=== PATIENT | male | born 1995 ===

== ENCOUNTER 2021-01-28 12:53 | Emergency (ER) | payer SELFPAY ==
[~2021-01-28] VITALS: Ht 177.8 cm; Wt 65.9 kg
[2021-01-28] MEDS ORDERED: NALOXONE 0.4 MG/ML, 1ML IVPush PRN (13:00)
[2021-01-28] MEDS ORDERED: PLEASE ENTER HEIGHT AND WEIGHT MC SCH (13:00)
[2021-01-28] MEDS ORDERED: PLEASE ENTER ALLERGIES MC SCH (13:00)
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
[2021-01-28] MEDS ORDERED: SUBOXONE (13:07)
[2021-01-28] MEDS ORDERED: ZIPRASIDONE 20 MG INJ IM ONE ×3 (13:08→14:00)
[2021-01-28] MEDS ORDERED: LORazepam 2 MG/ML, 1ML ONE (13:08)
--- NOTE | 2021-01-28 13:22 | NUR ---
PT DC'D OWN IV. BLEEDING CONTROLED. PT MEDICATED PER EMAR. TECH AT BEDSIDE SITTER. BP/SPO2/ECG MONITORING IN PLACE. TECH MADE AWARE POTENTIAL NEED FOR NARCAN AND HAS BEEN EDUCATED TO MONITOR RESPIRATORY RATE AND TO MAKE RN AWARE OF CHANGES IN BREATHING. DELAY IN LABS/ IMAGING D/T PT BEHAVIOR.
[2021-01-28] MEDS ORDERED: LORazepam 2 MG/ML, 1ML IM ONE (13:30)
[2021-01-28 13:52] LABS: BASOPHILS % (AUTO) 1 % (0-1); EOSINOPHILS % (AUTO) 1 % (1-7); LYMPHOCYTES % (AUTO) 28 % (22-44); MEAN CORPUSCULAR HEMOGLOBIN 27.8 pg (27.5-34.5); MEAN CORPUSCULAR HGB CONC 33.3 g/dL (33.2-36.2); MEAN PLATELET VOLUME 9.2 fL (7.4-10.4); MONOCYTES % (AUTO) 6 % (2-9); NEUTROPHILS % (AUTO) 64 % (42-75); PLATELET COUNT 228 x10^3/uL (130-400); RED BLOOD COUNT 4.69 x10^6/uL (4.38-5.82); RED CELL DISTRIBUTION WIDTH 14.7 % (9.4-14.8)
--- NOTE | 2021-01-28 13:56 | NUR ---
PT MORE SEDATE WITH MEDICATIONS. ARROUSABLE TO PAINFUL STIMULI. RR 12. SPO2 >90% ON 2L BY NC. ETCO2 WNL. TECH REMAINS AT BEDSIDE. THIS RN ATTEMPTED PIV, UNSUCCESSFUL. VEBAL ORDER RECEIVED FOR INTRANASAL NARCAN IF/WHEN NEEDED.
[2021-01-28] MEDS ORDERED: DIPHENHYDRAMINE 50 MG/ML, 1ML IM ONE (14:00)
[2021-01-28 14:02] LABS: ALANINE AMINOTRANSFERASE 14 U/L (12-78); ALBUMIN 3.7 g/dL (3.4-5.0); ANION GAP 5 mmol/L (5-15); CALCIUM 8.6 mg/dL (8.5-10.1); CHLORIDE 109 mmol/L (98-107); CREATININE 0.85 mg/dL (0.7-1.3)
[2021-01-28 14:04] LABS: ALKALINE PHOSPHATASE 88 U/L (45-117); BILIRUBIN,TOTAL 0.7 mg/dL (0.2-1.0); TOTAL PROTEIN 7.6 g/dL (6.4-8.2)
[2021-01-28 14:07] LABS: SALICYLATE LEVEL < 1.7 mg/dL (2.8-20.0)
--- NOTE | 2021-01-28 14:10 | NUR ---
PT RESTING IN GURNEY W EYES CLOSED. EVEN/REGULAR RESPIRATIONS NOTED. SPO2 > 90% ON 2L BY NC. LUE AND RLE FREED FROM RESTRAINTS. +CAP REFIL IN REMAINING EXTREMITIES. SITTER AT BEDSIDE.
[2021-01-28 14:13] LABS: MD MORPH REVIEW ONLY
[2021-01-28 14:14] LABS: <PLATELET ESTIMATE> ADEQUATE; <RBC MORPHOLOGY> NORMAL
[2021-01-28 14:15] LABS: LARGE PLATELETS 1+
--- NOTE | 2021-01-28 14:32 | NUR ---
PT CONTINUES TO REST QUIETLY. EVEN/REGULAR RESPIRATIONS. REMAINING TWO RESTRAINTS REMOVED. +[facility]. TECH AT BEDSIDE SITTER WHO IS MONITORING RESPIRATIONS CLOSELY.
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
--- NOTE | 2021-01-28 15:27 | NUR ---
REPORT TO CHANG KOROMA
--- NOTE | 2021-01-28 15:45 | NUR ---
PT SLEEPING, FAMILY AT BEDSIDE.
--- NOTE | 2021-01-28 16:04 | NUR ---
ATTEMPT TO SEARCH OF IV ACCESS. PT UNCOOPERATIVE.POOR VENOUS ACCESS
--- NOTE | 2021-01-28 18:13 | NUR ---
PT SLEEPING. MOM AT BEDSIDE
--- NOTE | 2021-01-28 19:08 | NUR ---
Report from Gaurav DOWNING. Significant other at bedside.
--- NOTE | 2021-01-28 19:14 | NUR ---
Pt mother at bedside.
--- NOTE | 2021-01-28 19:30 | NUR ---
Mother Loni Weber, lives in [place]. Mother informs me thathe and his friends have been up for days on methamphetamines. This is not his first episode and she has cared for him before.
--- NOTE | 2021-01-28 19:31 | NUR ---
Mother: Loni Yuan [phone]. Brother Isma [phone]
--- NOTE | 2021-01-28 19:33 | NUR ---
Sitter outside room.
--- NOTE | 2021-01-28 20:33 | NUR ---
MOTHER AT BEDSIDE. PT RESTING, EVEN RESP RATE, LEFT SIDE LYING, SITTER OURSIDE ROOM.
--- NOTE | 2021-01-28 20:55 | NUR ---
Mother at bedside provided tea. Sitter outside room.
--- NOTE | 2021-01-28 21:59 | NUR ---
Report to Leeanne Ramos RN.
--- NOTE | 2021-01-28 22:15 | NUR ---
PT RESTING ON GURNEY, EYES CLOSED. RESPIRATIONS EVEN AND UNLABORED. MOTHER AT BEDSIDE. SITTER AT DOOR WAY FOR FREQUENT CHECKS. MOTHER AWARE THAT PT WILL STAY THE NIGHT AND THAT HE IS ON A L2K.
--- NOTE | 2021-01-28 22:27 | NUR ---
PT ATTACHED TO ALL MONITORING DEVICES
--- NOTE | 2021-01-28 23:00 | NUR ---
PT AND MOTHER MADE AWARE OF NEED FOR URINE SAMPLE. URINAL AND URINE CUP AT THE BEDSIDE FOR THEM TO USE.
--- NOTE | 2021-01-29 | NUR ---
all pt belongings removed and placed into bag and secured in locker
--- NOTE | 2021-01-29 00:42 | NUR ---
PT RESTING ON GURNEY. EYES CLOSED. RESPIRATIONS EVEN AND UNLABORED. ATTACHED TO ALL MONITORS. SITTER OUTSIDE ROOM FOR FREQUENT CHECKS. MOTHER AT BEDSIDE.
--- NOTE | 2021-01-29 01:36 | NUR ---
PT RESTING ON GURNEY. EYES CLOSED. RESPIRATIONS EVEN AND UNLABORED. ATTACHED TO ALL MONITORS. SITTER OUTSIDE ROOM FOR FREQUENT CHECKS. MOTHER AT BEDSIDE
--- NOTE | 2021-01-29 03:36 | NUR ---
Pt moved to room 1, placed in hospital bed. Room secured, sitter in line of site. Pt mother remains with pt.
--- NOTE | 2021-01-29 03:47 | NUR ---
pt moved to room 1 and placed on hospital bed. room secured. sitter at door way for frequent checks
--- NOTE | 2021-01-29 04:00 | NUR ---
report to david liu
[2021-01-29 04:05] LABS: AMPHETAMINE SCREEN, URINE Positive (Negative); BARBITURATE SCREEN, URINE Negative (Negative); BENZODIAZEPINE SCREEN, URINE Positive (Negative); CANNABINOID SCREEN, URINE Positive (Negative); COCAINE SCREEN, URINE Positive (Negative); METHADONE SCREEN, URINE Negative (Negative); OPIATE SCREEN, URINE Positive (Negative)
--- NOTE | 2021-01-29 04:35 | NUR ---
RESP EVEN/UNLABORED, NO NEEDS AT THIS TIME, IN LINE OF SIGHT OF SITER
--- NOTE | 2021-01-29 05:43 | NUR ---
PT SLEEPING, RESP EVEN/UNLABORED, MOTHER AAT BEDSIDE, IN LINE OF SIGHT OF SITTER
--- NOTE | 2021-01-29 06:33 | NUR ---
pt sleeping, resp even/unlabored, mother at bedside, in line of sight of sitter
--- NOTE | 2021-01-29 06:53 | NUR ---
REPORT FROM CHEOM DOWNING. PT ASLEEP WITH EVEN AND UNLABORED RESPIRATIONS. DHEERAJ. NADN. GARRETT AND HERNAN AT BEDSIDE.
--- NOTE | 2021-01-29 07:36 | NUR ---
PT ASLEEP BUT ROUSABLE. RESPIRATIONS EVEN AND UNLABORED. VSS. NADN. SITTER AND MOTHER AT BEDSIDE.
--- NOTE | 2021-01-29 09:33 | NUR ---
pt asleep with even and unlabored respirations. sitter at bedside. clover.
--- NOTE | 2021-01-29 10:31 | NUR ---
DIEUDONNE CONTRERAS TO BEDSIDE FOR EVALUATION. DOC. BROTHER AT BEDSIDE.
--- NOTE | 2021-01-29 11:14 | NUR ---
PT ASLEEP WITH EVEN AND UNLABORED RESPIRATIONS. NADN. SITTER AND BROTHER AT BEDSIDE.
[2021-01-29 12:00] VITALS: BP 109/73
--- NOTE | 2021-01-29 12:00 | NUR ---
PT BELONGINGS RETURNED. VSS. UP FOR D/C. D/C PAPER WORK GIVEN TO PT. PT TO GO HOME WITH MOTHER.
--- NOTE | 2021-01-29 12:27 | NUR ---
Patient/Caregiver given discharge instructions and they have confirmed that they understand the instructions. Patient ambulatory with steady gait.
== END 2021-01-29 12:28 | disposition home or self-care (01) ==
LOC: ED 15:17
DX: G92 Toxic encephalopathy (principal); R45.851 Suicidal ideations; F11.10 Opioid abuse, uncomplicated; J96.01 Acute respiratory failure with hypoxia; F19.14 Other psychoactive substance abuse with psychoactive substance-induced mood disorder
CPT/HCPCS: 36415; 80053; 80299; 80307; 80320; 80329; 85025; 96372; 99285; J2060; J3486; G0480